=== PATIENT | male | born 1960 | race Asian ===

== ENCOUNTER 2018-03-23 11:18 | Inpatient (IN) | payer MEDICAID ==
[~2018-03-23] VITALS: Ht 172.7 cm; Wt 86.0 kg
[~2018-03-23 11:18] MED LIST: AMB5 PO; APAP/HYDROCODON1 T13 PO; ATENOLOL25 MG PO; BG MC; COL100 PO; COR3 PO; DEXPF IV; ECO81 PO; HEP100I IV; HEP5I IV; HUMULIN R100 U/1 M1 SC; IPRATROPIUM BROM3 M2 HHN; L40I IV; LIPI20 PO; MOR2I IV; NIT0.4 SL; PRI20 PO; TYL325 PO; TYLENOL PM1 CAP PO; ZES10 PO; ZOFI IV
[2018-03-23 11:22] VITALS: Ht 172.7 cm; Wt 86.0 kg
[2018-03-23 11:52] LABS: BASOPHIL % 0.6 % (0-2); PLATELET COUNT 177 x10^3mcL (130-400); RED CELL DISTRIBUTION WIDTH 14.6 % (11.5-14.5)
[2018-03-23 12:16] LABS: ALBUMIN 3.5 g/dL (3.4-5.0); CALCIUM 9.4 mg/dL (8.5-10.1); CARBON DIOXIDE 29.1 mmol/L (21-32); CHLORIDE SERUM 98 mmol/L (98-107); CREATININE SERUM 1.1 mg/dL (0.7-1.3); GFR1 > 60 mL/min; GLUCOSE SERUM 200 mg/dL (74-106); LIPASE 87 IU/L (73-393); POTASSIUM SERUM 4.1 mmol/L (3.5-5.1); SODIUM SERUM 133 mmol/L (136-145)
[2018-03-23 12:32] LABS: ALKALINE PHOSPHATASE 140 U/L (46-116); ALT/SGPT 88 U/L (16-63); AST/SGOT 49 U/L (15-37); BILIRUBIN TOTAL 4.7 mg/dL (0.20-1.00); TOTAL PROTEIN, SERUM 8.3 g/dL (6.4-8.2)
[2018-03-23 15:03] LABS: CHOLESTEROL/HDL RATIO 3.5; PHOSPHOROUS 3.2 mg/dL (2.5-4.9)
[2018-03-23 15:36] VITALS: BP 144/91
[2018-03-23 15:39] LABS: FREE T4 1.48 ng/dL (0.76-1.46); FREE THYROXINE INDEX 2.9 ug/dL (1.4-4.5); T4(THYROXINE) 7.4 ug/dL (4.7-13.3)
[2018-03-23 16:11] LABS: T3 TOTAL 0.58 ng/mL
[2018-03-23 16:39] LABS: UA SPECIFIC GRAVITY >=1.030 (1.005-1.035); microscopic required? YES; urine erythrocyte 1+ (NEGATIVE)
[2018-03-23 20:39] VITALS: BP 139/89
[2018-03-24 05:17] VITALS: BP 135/58
[2018-03-24 06:53] LABS: BASOPHIL % 0.4 % (0-2); PLATELET COUNT 182 x10^3mcL (130-400); RED CELL DISTRIBUTION WIDTH 14.5 % (11.5-14.5)
[2018-03-24 07:08] LABS: ALKALINE PHOSPHATASE 136 U/L (46-116); ALT/SGPT 70 U/L (16-63); AST/SGOT 36 U/L (15-37); BILIRUBIN TOTAL 5.02 mg/dL (0.20-1.00); CALCIUM 8.9 mg/dL (8.5-10.1); CARBON DIOXIDE 29.4 mmol/L (21-32); GFR1 > 60 mL/min; GLUCOSE SERUM 121 mg/dL (74-106); PHOSPHOROUS 2.9 mg/dL (2.5-4.9); TOTAL PROTEIN, SERUM 7.6 g/dL (6.4-8.2)
[2018-03-24 07:33] LABS: CHLORIDE SERUM 101 mmol/L (98-107); POTASSIUM SERUM 4.3 mmol/L (3.5-5.1); SODIUM SERUM 138 mmol/L (136-145)
[2018-03-24 08:02] VITALS: BP 135/91
[2018-03-24 12:32] VITALS: BP 126/85
[2018-03-24 16:41] VITALS: BP 130/91
[2018-03-24 20:51] VITALS: BP 128/85
[2018-03-25 05:33] VITALS: BP 116/76
[2018-03-25 06:31] LABS: BASOPHIL % 0.5 % (0-2); PLATELET COUNT 187 x10^3mcL (130-400); RED CELL DISTRIBUTION WIDTH 14.3 % (11.5-14.5)
[2018-03-25 06:40] LABS: CALCIUM 8.5 mg/dL (8.5-10.1); CARBON DIOXIDE 29.8 mmol/L (21-32); CHLORIDE SERUM 102 mmol/L (98-107); CREATININE SERUM 1.2 mg/dL (0.7-1.3); GFR1 > 60 mL/min; GLUCOSE SERUM 123 mg/dL (74-106); PHOSPHOROUS 4.3 mg/dL (2.5-4.9); POTASSIUM SERUM 4.1 mmol/L (3.5-5.1); SODIUM SERUM 135 mmol/L (136-145)
[2018-03-25 07:52] VITALS: BP 128/84
[2018-03-25 11:59] VITALS: BP 126/79
[2018-03-25 16:12] VITALS: BP 115/77
[2018-03-25 20:41] VITALS: BP 129/80
[2018-03-26 05:33] VITALS: BP 121/76
[2018-03-26 06:23] LABS: BASOPHIL % 0.3 % (0-2); PLATELET COUNT 181 x10^3mcL (130-400)
[2018-03-26 06:32] LABS: ALKALINE PHOSPHATASE 139 U/L (46-116); ALT/SGPT 43 U/L (16-63); AST/SGOT 21 U/L (15-37); CALCIUM 8.3 mg/dL (8.5-10.1); CARBON DIOXIDE 27.4 mmol/L (21-32); CHLORIDE SERUM 102 mmol/L (98-107); CREATININE SERUM 0.9 mg/dL (0.7-1.3); GFR1 > 60 mL/min; GLUCOSE SERUM 110 mg/dL (74-106); LIPASE 96 IU/L (73-393); PHOSPHOROUS 3.9 mg/dL (2.5-4.9); SODIUM SERUM 137 mmol/L (136-145); TOTAL PROTEIN, SERUM 6.5 g/dL (6.4-8.2)
[2018-03-26 06:35] LABS: ALBUMIN 2.6 g/dL (3.4-5.0)
[2018-03-26 07:19] LABS: RED CELL DISTRIBUTION WIDTH 14.7 % (11.5-14.5)
[2018-03-26 08:38] VITALS: BP 128/80
[2018-03-26 12:31] VITALS: BP 131/82
[2018-03-26 16:50] VITALS: BP 127/85
[2018-03-26 21:10] VITALS: BP 136/84
[2018-03-27 05:55] LABS: BASOPHIL % 0.5 % (0-2); PLATELET COUNT 195 x10^3mcL (130-400)
[2018-03-27 06:01] LABS: CALCIUM 8.7 mg/dL (8.5-10.1); CARBON DIOXIDE 27.2 mmol/L (21-32); CHLORIDE SERUM 103 mmol/L (98-107); GFR1 > 60 mL/min; GLUCOSE SERUM 96 mg/dL (74-106); MAGNESIUM 1.9 mg/dL (1.8-2.4); PHOSPHOROUS 3.7 mg/dL (2.5-4.9); POTASSIUM SERUM 4.5 mmol/L (3.5-5.1); RED CELL DISTRIBUTION WIDTH 14.9 % (11.5-14.5); SODIUM SERUM 140 mmol/L (136-145)
[2018-03-27 06:11] VITALS: BP 143/87
[2018-03-27 06:14] LABS: BILIRUBIN DIRECT 0.8 mg/dL (0.0-0.2); BILIRUBIN TOTAL 1.35 mg/dL (0.20-1.00); TOTAL PROTEIN, SERUM 6.7 g/dL (6.4-8.2)
[2018-03-27 06:15] LABS: ALBUMIN 2.7 g/dL (3.4-5.0)
[2018-03-27 09:16] VITALS: BP 157/97
[2018-03-27 12:02] VITALS: BP 145/92
[2018-03-27] MEDS ORDERED: COR3 PO (14:19)
[2018-03-27] MEDS ORDERED: ZES10 PO (14:19)
[2018-03-27] MEDS ORDERED: L40 PO (14:20)
[2018-03-27 15:05] VITALS: BP 145/92
== END 2018-03-27 15:27 | disposition home or self-care (01) ==
LOC: ED 11:18 → DU 14:04 → MU 14:04 → DU 03-25 11:27
PROVIDERS: Emergency Medicine; Family Medicine
DX: K80.20 Calculus of gallbladder without cholecystitis without obstruction (principal); N17.0 Acute kidney failure with tubular necrosis; E44.0 Moderate protein-calorie malnutrition; D68.69 Other thrombophilia; I11.0 Hypertensive heart disease with heart failure; E11.65 Type 2 diabetes mellitus with hyperglycemia; I36.1 Nonrheumatic tricuspid (valve) insufficiency; I42.0 Dilated cardiomyopathy; I34.0 Nonrheumatic mitral (valve) insufficiency; I35.1 Nonrheumatic aortic (valve) insufficiency; K29.70 Gastritis, unspecified, without bleeding; R74.0 Nonspecific elevation of levels of transaminase and lactic acid dehydrogenase [LDH]; E78.5 Hyperlipidemia, unspecified; I25.10 Atherosclerotic heart disease of native coronary artery without angina pectoris; Z66 Do not resuscitate; Z79.4 Long term (current) use of insulin; Z68.27 Body mass index [BMI] 27.0-27.9, adult; Z95.1 Presence of aortocoronary bypass graft; Z87.891 Personal history of nicotine dependence; Z91.19 Patient's noncompliance with other medical treatment and regimen
CPT/HCPCS: 78226; 82962; 84439; A9537; C9113; J2543; J7030; Q0092